=== PATIENT | female | born 1950 | race Caucasian/White ===

== ENCOUNTER → 2023-12-23 07:59 | Outpatient (REF) | payer MEDICARE, OTHER, SELFPAY | LOC: MRI 07:59 | PROVIDERS: ATTENDING PHYSICIAN Psychiatry & Neurology Neurology; FAMILY PHYSICIAN Family Medicine | DX: D32.9 Benign neoplasm of meninges, unspecified (principal) | CPT/HCPCS: 70553 ==

== ENCOUNTER → 2024-05-02 13:13 | Outpatient (REF) | payer MEDICARE, OTHER, SELFPAY | LOC: WDC 13:13 | PROVIDERS: ATTENDING PHYSICIAN Family Medicine | DX: Z12.31 Encounter for screening mammogram for malignant neoplasm of breast (principal) | CPT/HCPCS: 77063; 77067 ==

== ENCOUNTER → 2024-06-27 09:19 | Outpatient (REF) | payer MEDICARE, OTHER, SELFPAY | LOC: PAVMRI 09:19 | PROVIDERS: ATTENDING PHYSICIAN Psychiatry & Neurology Neurology; FAMILY PHYSICIAN Family Medicine | DX: D32.9 Benign neoplasm of meninges, unspecified (principal) | CPT/HCPCS: 70553; A9575 ==

== ENCOUNTER → 2024-09-02 06:24 | Day surgery (SDC) | payer MEDICARE, OTHER, SELFPAY | LOC: GI 06:24 | PROVIDERS: ATTENDING PHYSICIAN Internal Medicine Gastroenterology | DX: R19.7 Diarrhea, unspecified (principal); K57.30 Diverticulosis of large intestine without perforation or abscess without bleeding; K64.8 Other hemorrhoids; D12.5 Benign neoplasm of sigmoid colon; D12.2 Benign neoplasm of ascending colon; D12.4 Benign neoplasm of descending colon | CPT/HCPCS: 45385; 45381; 45380; 88305 ==

== ENCOUNTER → 2024-10-02 11:12 | Outpatient (REF) | payer MEDICARE, OTHER, SELFPAY | LOC: RAD 11:12 | PROVIDERS: ATTENDING PHYSICIAN Internal Medicine Gastroenterology; FAMILY PHYSICIAN Family Medicine | DX: R19.7 Diarrhea, unspecified (principal); R19.5 Other fecal abnormalities | CPT/HCPCS: 74160; Q9967 ==

== ENCOUNTER 2024-12-09 10:59 | Outpatient (RCR) | payer MEDICARE, OTHER, SELFPAY | END 2024-12-09 23:59 | disposition home or self-care (01) | LOC: RPT 10:59 | PROVIDERS: ATTENDING PHYSICIAN Family Medicine | DX: N39.3 Stress incontinence (female) (male) (principal); M62.89 Other specified disorders of muscle; R15.1 Fecal smearing; Z73.6 Limitation of activities due to disability | CPT/HCPCS: 97110; 97162; 97530 ==

== ENCOUNTER → 2025-03-12 08:19 | Outpatient (REF) | payer MEDICARE, OTHER, SELFPAY | LOC: MRI 08:19 | PROVIDERS: ATTENDING PHYSICIAN Psychiatry & Neurology Neurology; FAMILY PHYSICIAN Family Medicine | DX: D32.9 Benign neoplasm of meninges, unspecified (principal) | CPT/HCPCS: 70553; A9575 ==

== ENCOUNTER → 2025-05-06 11:46 | Outpatient (REF) | payer MEDICARE, OTHER, SELFPAY | LOC: WDC 11:46 | PROVIDERS: ATTENDING PHYSICIAN Family Medicine | DX: Z12.31 Encounter for screening mammogram for malignant neoplasm of breast (principal) | CPT/HCPCS: 77063; 77067 ==

== ENCOUNTER → 2025-05-29 13:26 | Outpatient (REF) | payer MEDICARE, OTHER, SELFPAY | LOC: MRI 3T 13:26 | PROVIDERS: ATTENDING PHYSICIAN Physician Assistant Surgical; FAMILY PHYSICIAN Family Medicine | DX: M43.16 Spondylolisthesis, lumbar region (principal); M54.6 Pain in thoracic spine; M54.50 Low back pain, unspecified; M41.86 Other forms of scoliosis, lumbar region | CPT/HCPCS: 72148 ==

== ENCOUNTER → 2025-08-19 12:07 | Outpatient (REF) | payer MEDICARE, OTHER, SELFPAY | LOC: RAD 12:07 | PROVIDERS: ATTENDING PHYSICIAN Physician Assistant Medical; FAMILY PHYSICIAN Family Medicine | DX: M54.50 Low back pain, unspecified (principal); G89.29 Other chronic pain | CPT/HCPCS: 72082 ==

== ENCOUNTER 2025-09-09 12:52 | Emergency (ER) | payer MEDICARE, OTHER, SELFPAY ==
[2025-09-09 13:03] VITALS: BP 174/78
--- NOTE | 2025-09-09 15:06 | ED.GENMED ---
History of Present Illness
General
Chief Complaint: Back Pain
Time Seen by Provider: 09/09/25 14:47
History of Present Illness
History of Present Illness:
Patient is a 75-year-old with history of A-fib on Eliquis presenting to the emergency department back pain. Patient states that she has a known compression fracture in the thoracic spine. Usually her pain is in the right side. Now developed pain
in the left side. It is in the mid back. No recent falls. No traumatic events. She has been compliant with her Eliquis. No chest pain or shortness of breath. No abdominal pain. No nausea or vomiting. No rash. She does state that she she is
pending neurosurgery as she does have scoliosis compression fracture spinal stenosis.
Past History
Past History
ED Past Medical History: None
ED Past Surgical History: None
Social History
Tobacco: Non-smoker
Alcohol: None
Drug: None
Living: with family
Phy Exam
Physical Exam
Physical Exam:
GENERAL: in no acute distress
HEENT: normocephalic, extraocular movements intact, moist oral mucosa
NECK: normal inspection
Back: Midline tenderness at the lower thoracic upper lumbar region, left-sided paraspinal tenderness at the upper lumbar
RESPIRATORY: no respiratory distress, clear to auscultation bilaterally
CARDIOVASCULAR: regular rate and rhythm
ABDOMEN/: soft, non-distended, non-tender to palpation, no rebound or guarding
EXTREMITIES: non-tender, no edema/swelling
NEUROLOGIC: awake and alert, moves all extremities
SKIN: warm
Course
Orders/Labs/Results
Orders:
Orders
09/09/25 15:05
CT Lumbar Spine W/o Iv Contras Urgent
Comment:
Reason For Exam: l1 ttp
CT Thoracic Spine W/o Iv Contr Urgent
Comment:
Reason For Exam: known compression fx
09/09/25 15:06
Oxycodone [Roxicodone] 5 mg PO NOW STA
Vital Signs
Initial and Last Documented VS:
Initial Vital Signs
Temp Pulse Resp BP Pulse Ox
98.5 F 50 20 174/78 99
09/09/25 13:03 09/09/25 13:03 09/09/25 13:03 09/09/25 13:03 09/09/25 13:03
Last Documented Vital Signs
Temp Pulse Resp BP Pulse Ox
98.2 F 55 18 183/70 98
09/09/25 17:20 09/09/25 17:20 09/09/25 17:20 09/09/25 17:20 09/09/25 17:20
MDM/Problems Addressed
Differential Diagnosis Includes:
Patient is a 75-year-old woman with history of A-fib on Eliquis presenting to the emergency department with back pain that is different than her chronic back pain. On arrival vitals are notable for hypertension. Exam does show tenderness to
palpation to the spine in the lower thoracic upper lumbar region as well as left side paraspinal and upper lumbar region. Concern for new or worsening compression fracture versus malignancy though less likely. History and exam not consistent with
aortic pathology or kidney stone. Considered PE given the location of the pain though patient is anticoagulated with no other risk factors.. No red flags such as fevers chills numbness tingling weakness to suggest discitis osteomyelitis or
epidural abscess or cord compression. Will obtain CT scan of the spine as well as pain control.
*Pulse Oximetry
SaO2: 99
Oxygen Mode of Delivery: Room air
Patient hypoxic: no
*Critical Care Note
Total Time (30-74mins, 75-104mins- exclusive of procedures): Not Applicable
Update Note
Update Note:
On reassessment pain is much more improved and she is able to turn in bed. CT scans notable for chronic compression fracture. No acute findings. Given the patient has not seen pain management for over a month and does not have any additional pain
medications at home and is limited to only Tylenol given her anticoagulation will send patient a prescription for a few oxycodone. Will discharge at this time. Strict return precautions given.
ED Attending Note
-
Portions of this chart may have been created with voice recognition software.� Occasional wrong word or��sound alike� substitutions may have occurred due to the inherent limitations of voice recognition software.
Discharge Plan
Departure
Patient Disposition: Home (Routine Discharge)
Date of Disposition: 09/09/25
Time of Disposition: 17:59
Patient with high blood pressure during this ER visit?: Yes
Discharge Problem:
Compression fracture
Instructions: Vertebral Compression Fracture ED
Prescriptions:
New
oxycodone 5 mg tablet
5 mg PO Q8H PRN (Reason: Pain) Qty: 3 0RF
No Action
levothyroxine 25 MCG tablet
50 mcg PO DAILY
rosuvastatin 5 MG tablet
10 mg PO DAILY
Metoprolol
25 mg PO BID
Patient Comments:
pt thinks it may be 25mg
polyethylene glycol 3350 17 GRAMS powder in packet
17 grams PO DAILYPRN PRN (Reason: constipation) Qty: 1 0RF
ibuprofen 200 MG tablet
400 - 600 mg PO Q6HPRN PRN (Reason: moderate pain) Qty: 1 0RF
acetaminophen [Tylenol Extra Strength] 500 MG tablet
1,000 mg PO Q6HPRN PRN (Reason: mild pain) Qty: 1 0RF
oxycodone 5 MG tablet
5 mg PO Q4HPRN PRN (Reason: breakthrough/severe pain) Qty: 7 0RF
Acetaminophen Pm Tablet
2 tab PO HS
Hydrochlorothiazide
12.5 mg PO DAILY
Vitamin D3 (cholecalciferol):
1 tab PO DAILY
Eliquis DVT-PE Treat 30D Start 5 mg (74 tabs) tablets,dose pack
See Rx Instructions .ROUTE .COMPLEX Qty: 74 0RF
Rx Instructions:
orally per package directions
Referrals:
Marti Julian MD [Family Provider, Family Practice]
Interventions
Interventions:
*Risk Screen - Suicide Last Done: 09/09/25 13:03
*General Assessment Last Done: 09/09/25 13:03
*Neglect/Abuse Screening Last Done: 09/09/25 13:03
*Nursing Disposition Last Done: 09/09/25 17:56
ED-Musculoskeletal Assessment Last Done: 09/09/25 16:00
Discharge Date and Time
Print Language: NAURUAN
[2025-09-09] MEDS: ROXICODONE 5 MG PO (15:31)
[2025-09-09 17:20] VITALS: BP 183/70
== END 2025-09-09 18:15 | disposition home or self-care (01) ==
LOC: EMR 12:52
PROVIDERS: EMERGENCY PHYSICIAN Student in an Organized Health Care Education/Training Program; FAMILY PHYSICIAN Family Medicine
DX: M48.54XA Collapsed vertebra, not elsewhere classified, thoracic region, initial encounter for fracture (principal); R03.0 Elevated blood-pressure reading, without diagnosis of hypertension; I48.91 Unspecified atrial fibrillation; M41.9 Scoliosis, unspecified; M48.00 Spinal stenosis, site unspecified; Z79.01 Long term (current) use of anticoagulants
CPT/HCPCS: 99284; 72128; 72131